=== PATIENT | female | born 1980 | race African-American/Black ===

== ENCOUNTER 2018-05-11 12:08 | Emergency (ER) | payer OTHER, SELFPAY | END 2018-05-11 13:38 | disposition home or self-care (01) | LOC: BURERS 12:08 | DX: J06.9 Acute upper respiratory infection, unspecified (principal); I10 Essential (primary) hypertension; F17.210 Nicotine dependence, cigarettes, uncomplicated; Z79.899 Other long term (current) drug therapy | CPT/HCPCS: 99283 ==